=== PATIENT | female | born 1995 | race Caucasian/White ===

== ENCOUNTER 2018-06-04 15:15 | Emergency (ER) | payer MEDICAID ==
[2018-06-04 15:24] VITALS: BMI 32.3
[2018-06-04 15:38] VITALS: O2SAT 100
[2018-06-04] MEDS ORDERED: Aspirin 325 mg EC Tablets PO STA (15:51)
[2018-06-04] MEDS ORDERED: Sodium Chloride 0.9% 1,000 ML IV ONE (15:51)
--- NOTE | 2018-06-04 16:06 | C.PDOC ---
History Of Present Illness 23 y/o female presents to ED with complaints of midsternal chest pain which occasionally radiates to left side intermittently for the past 6 months. Patient describes pain as tightness, and states for 2 months pain has been more frequent. Patient admits sob and nausea with chest tightness which lasts few minutes. Patient states she has been seen by her doctor, who has not done any tests for her pain. Patient denies back pain, leg swelling, abdominal pain, vomiting, diarrhea. LMP 05/15/18 Time Seen by Provider: 06/04/18 15:40 Chief Complaint (Nursing): Chest Pain History Per: Patient History/Exam Limitations: no limitations Onset/Duration Of Symptoms: Intermittent Episodes (6 months) Current Symptoms Are (Timing): Still Present Context: Food Quality: Tightness, "Pain" Associated Symptoms: Nausea Modifying Factors: None Exacerbating Factors: None Alleviating Factors: None Past Medical History Reviewed: Historical Data, Nursing Documentation, Vital Signs Vital Signs: Last Vital Signs Temp 98.6 F 06/04/18 15:37 Pulse 78 06/04/18 15:37 Resp 18 06/04/18 15:37 BP 105/70 06/04/18 15:37 Pulse Ox 100 06/04/18 17:07 - Medical History PMH: No Chronic Diseases Surgical History: No Surg Hx Family History: States: No Known Family Hx - Social History Hx Alcohol Use: No Hx Substance Use: No - Immunization History Hx Tetanus Toxoid Vaccination: No Hx Influenza Vaccination: No Hx Pneumococcal Vaccination: No Review Of Systems Constitutional: Negative for: Fever, Chills Cardiovascular: Positive for: Chest Pain. Negative for: Palpitations Respiratory: Positive for: Shortness of Breath. Negative for: Cough Gastrointestinal: Positive for: Nausea. Negative for: Vomiting Musculoskeletal: Negative for: Back Pain Skin: Negative for: Rash Physical Exam - Physical Exam Appears: Well, Non-toxic, No Acute Distress Skin: Warm, Dry, No Rash Head: Atraumatic, Normacephalic Eye(s): bilateral: Normal Inspection, EOMI Oral Mucosa: Moist Neck: Supple Chest: Symmetrical, No Tenderness, No Subcutaneous Emphysema Cardiovascular: Rhythm Regular, No Friction Rub, No Murmur Respiratory: Normal Breath Sounds, No Rales, No Rhonchi, No Wheezing Gastrointestinal/Abdominal: Bowel Sounds, Soft, No Tenderness, No Distention, No Guarding, No Rebound Back: Normal Inspection, No Vertebral Tenderness, No Paraspinal Tenderness Extremity: Normal ROM, No Tenderness, No Pedal Edema, No Calf Tenderness, Capillary Refill (<2 seconds), No Swelling Pulses: Left Radial: Normal Neurological/Psych: Oriented x3, Normal Speech (Speaking in full sentences) Gait: Steady ED Course And Treatment - Laboratory Results Result Diagrams: 06/04/18 16:14 06/04/18 16:14 Lab Interpretation: No Acute Changes ECG: Interpreted By Me, Viewed By Me ECG Rhythm: Sinus Rhythm (Arrythmia) Interpretation Of ECG: NSR arrythmia @81BPM, Mild left axis deviation Rate From EC (bpm) O2 Sat by Pulse Oximetry: 100 (ra) Pulse Ox Interpretation: Normal - Radiology CXR: Interpreted by Me, Viewed By Me CXR Interpretation: Yes: No Acute Disease Medical Decision Making Medical Decision Making: Impression: CHEST PAIN X 6 MONTHS Plan: * EKG * CXR * Blood work * UA * Aspirin Progress: All diagnostics reviewed with no acute findings suggestive of ACS, infectious process, PE or other serious condition. Based on these negative findings the patient is stable for discharge. Symptoms likely related to anxiety or GI. On re-examination, patient is resting comfortably in no acute distress. Patient denies any chest pain or SOB during ED observation. Discussed results with patient, and copy of report of lab and chest xray report was provided. [employer] patient on diet changes to help with triglycerides. Patient feels comfortable going home and will be discharged. Patient given follow up instructions. Instructed to return to ER if symptoms worsen or new symptoms arise. Disposition Counseled Patient/Family Regarding: Studies Performed, Diagnosis, Need For Followup - Disposition Referrals: Ludy Byrnes MD [Staff Provider] - Disposition: HOME/ ROUTINE Disposition Time: 17:05 Condition: STABLE Additional Instructions: Your labs and xray were normal Recommend follow up with director life sales Instructions: Chest Pain That Is Not Caused by the Heart (DC), High Triglycerides Forms: [facility] (Kinyarwanda), Work Excuse - POA Present On Arrival: None - Clinical Impression Clinical Impression: Chest discomfort, High triglycerides - PA / [employer] / Resident Statement MD/DO has reviewed & agrees with the documentation as recorded. - Scribe Statement The provider has reviewed the documentation as recorded by the Scribe Maricsa Marie All medical record entries made by the Scribe were at my direction and personally dictated by me. I have reviewed the chart and agree that the record accurately reflects my personal performance of the history, physical exam, medical decision making, and the department course for this patient. I have also personally directed, reviewed, and agree with the discharge instructions and disposition.
--- NOTE | 2018-06-04 16:08 | RAD ---
Date of service: 06/04/2018 HISTORY: chest pain COMPARISON: No prior. TECHNIQUE: Chest PA and lateral FINDINGS: LUNGS: No active pulmonary disease. PLEURA: No significant pleural effusion identified. No pneumothorax apparent. CARDIOVASCULAR: Normal. OSSEOUS STRUCTURES: No significant abnormalities. VISUALIZED UPPER ABDOMEN: Normal. OTHER FINDINGS: None. IMPRESSION: No active disease.
[2018-06-04 16:18] LABS: BASO # 0.1 K/uL (0.0-0.2); BASO % 0.7 % (0.0-2.0); EOS # 0.2 K/uL (0.0-0.7); EOS % 2.5 % (0.0-4.0); LYMPH # 1.9 K/uL (1.0-4.3); LYMPH % 24.5 % (20.0-40.0); MEAN CELL VOLUME 87.9 fL (81.0-99.0); MEAN CORPUSCULAR HEMOGLOBIN 30.1 pg (27.0-31.0); MEAN CORPUSCULAR HGB CONC 34.3 g/dL (33.0-37.0); MEAN PLATELET VOLUME 8.1 fL (7.2-11.7); MONO # 0.4 K/uL (0.0-0.8); MONO % 5.5 % (0.0-10.0); NEUT # 5.1 K/uL (1.8-7.0); NEUT % 66.8 % (50.0-75.0); NRBC % 0.1 % (0.0-2.0); RBC 4.65 Mil/uL (3.80-5.20); RED CELL DISTRIBUTION WIDTH 13.3 % (11.5-14.5); WHITE BLOOD COUNT 7.7 K/uL (4.8-10.8)
[2018-06-04] MEDS ORDERED: Sodium Chloride 0.9% 1,000 ML ONE (16:27)
[2018-06-04 16:32] LABS: ALB/GLOB RATIO 1.2 (1.0-2.1); ALBUMIN 4.2 g/dL (3.5-5.0); ALT/SGPT 24 U/L (9-52); AST/SGOT 21 U/L (14-36); BLOOD UREA NITROGEN 10 mg/dL (7-17); CALCIUM 9.5 mg/dl (8.6-10.4); GFR NON-AFRICAN AMERICAN > 60; HDL CHOLESTEROL 71 mg/dL (30-70); LIPASE 98 U/L (23-300)
[2018-06-04 16:32] LABS: HCG,QUALITATIVE URINE NEGATIVE (NEGATIVE)
[2018-06-04 16:39] LABS: SQUAMOUS EPITHIAL 4 /hpf (0-5); URINE BILIRUBIN NEGATIVE (NEGATIVE); URINE BLOOD NEGATIVE (NEGATIVE); URINE CLARITY Clear (Clear); URINE COLOR Straw (YELLOW); URINE GLUCOSE (UA) NORMAL (Normal); URINE LEUKOCYTE ESTERASE NEG Leu/uL (Negative); URINE PROTEIN NEGATIVE (NEGATIVE); URINE UROBILINOGEN NORMAL mg/dL (0.2-1.0)
[2018-06-04 16:43] LABS: LDL CHOLESTEROL 60 mg/dL (0-129)
[2018-06-04 17:19] VITALS: BP 100/56; PULSE 87; RESP 20; TEMP 98.3
--- NOTE | 2018-06-06 06:59 | CARD ---
APPROVED REPORT Date of service: 06/04/2018 EKG Measurement Heart [id number] <Conclusion> Normal sinus rhythm with sinus arrhythmia Septal infarct, age undetermined Abnormal ECG
== END 2018-06-04 17:19 | disposition home or self-care (01) ==
LOC: C.ER 15:15
DX: R07.89 Other chest pain (principal); E78.1 Pure hyperglyceridemia
CPT/HCPCS: 71046; 80053; 80061; 81001; 83690; 84484; 84703; 85025; 96360; 99284; J7030